=== PATIENT | female | born 1975 | race Caucasian/White ===

== ENCOUNTER → 2023-02-07 | Outpatient (CLI) | payer SELFPAY ==
[2023-02-07 16:06] LABS: Homocysteine 10.7 UMOL/L (4.00-14.00)
[2023-02-07 16:53] LABS: Estradiol <20.0 pg/mL
[2023-02-07 18:59] LABS: DHEA Sulfate 57.6 UG/DL (39.0-800.0)
== END | disposition home or self-care (01) ==
LOC: LABWHC1 09:51
PROVIDERS: ATTEND Family Medicine
DX: E34.9 Endocrine disorder, unspecified (principal); E72.10 Disorders of sulfur-bearing amino-acid metabolism, unspecified; E53.9 Vitamin B deficiency, unspecified
CPT/HCPCS: 36415; 82607; 82627; 82670; 83090; 84144; 84402; 84403

== ENCOUNTER → 2023-05-06 | Outpatient (CLI) | payer SELFPAY ==
[2023-05-06 16:40] LABS: Estradiol <20.0 pg/mL
== END | disposition home or self-care (01) ==
LOC: LABWHC1 09:56
PROVIDERS: ATTEND Nurse Practitioner Family
DX: E34.9 Endocrine disorder, unspecified (principal)
CPT/HCPCS: 36415; 82670; 84144; 84403

== ENCOUNTER → 2023-11-09 | Outpatient (CLI) | payer SELFPAY ==
[2023-11-09 15:14] LABS: HCT 36.7 % (37.2-46.3); HGB 12.4 g/dL (12.0-15.0); MCH 31.6 pg (27.0-32.0); MCHC 33.8 g/dL (32.0-37.0); MCV 93.6 FL (80.0-97.0); Mean Platelet Volume 11.4 FL (9.5-12.2); NRBC Per 100 WBC 0 X 10*3/uL (0.00-0.01); Platelet Count 175 X 10*3/uL (140-440); RBC 3.92 X 10*6/uL (4.10-5.20)
[2023-11-09 15:31] LABS: Homocysteine 9.94 UMOL/L (4.00-14.00)
[2023-11-09 15:32] LABS: ALT 21 U/L (8-44); AST 22 U/L (13-35); Albumin 4.7 g/dL (3.8-4.9); Albumin/Globulin Ratio 1.96 Ratio (1.60-3.17); Alkaline Phosphatase 62 U/L (41-126); BUN/Creat Ratio 19.89 Ratio (12.00-20.00); Blood Urea Nitrogen 17.9 mg/dL (9.0-27.0); Calcium 9.4 mg/dL (8.7-10.3); Carbon Dioxide 24.9 mmol/L (21.6-31.8); Chloride 104 mmol/L (96-109); Globulin 2.4 g/dL (1.6-3.3); Glucose 97 mg/dL (70-110); LDL Cholesterol,Calculated 122.6 mg/dL (0.0-131.0); Potassium 3.7 mmol/L (3.5-5.5); Sodium 140 mmol/L (135-145); Total Bilirubin 0.5 mg/dL (0.3-1.2); Total Protein 7.1 g/dL (6.2-8.2)
[2023-11-09 15:44] LABS: C Reactive Protein <0.30 mg/dL (0.00-0.80); Estradiol <20.0 pg/mL
[2023-11-09 15:51] LABS: Progesterone 1.8 ng/mL
== END | disposition home or self-care (01) ==
LOC: LABWHC1 08:52
PROVIDERS: ATTEND Nurse Practitioner Family
DX: E03.9 Hypothyroidism, unspecified (principal); E72.10 Disorders of sulfur-bearing amino-acid metabolism, unspecified; E55.9 Vitamin D deficiency, unspecified; I10 Essential (primary) hypertension; D64.9 Anemia, unspecified; R73.09 Other abnormal glucose
CPT/HCPCS: 36415; 80053; 80061; 82306; 82670; 82728; 83036; 83090; 84144; 84402; 84403; 84443; 85027; 86140

== ENCOUNTER → 2024-04-26 | Outpatient (CLI) | payer SELFPAY ==
[2024-04-26 15:13] LABS: Homocysteine 8.3 UMOL/L (4.00-14.00)
[2024-04-26 15:30] LABS: Progesterone 3.4 ng/mL
[2024-04-26 16:35] LABS: Estradiol <20.0 pg/mL
== END | disposition home or self-care (01) ==
LOC: LABWHC1 08:16
PROVIDERS: ATTEND Nurse Practitioner Family
DX: E34.9 Endocrine disorder, unspecified (principal); E72.10 Disorders of sulfur-bearing amino-acid metabolism, unspecified; E55.9 Vitamin D deficiency, unspecified
CPT/HCPCS: 36415; 82306; 82670; 83090; 84144; 84402; 84403

== ENCOUNTER → 2024-10-15 | Outpatient (CLI) | payer SELFPAY ==
[2024-10-15 15:51] LABS: ALT 20 U/L (8-44); AST 21 U/L (13-35); Albumin 4.6 g/dL (3.8-4.9); Albumin/Globulin Ratio 2.19 Ratio (1.60-3.17); Alkaline Phosphatase 51 U/L (41-126); Anion Gap 10.30 mmol/L (4.00-12.00); BUN/Creat Ratio 15.75 Ratio (12.00-20.00); Blood Urea Nitrogen 12.6 mg/dL (9.0-27.0); Calcium 9.1 mg/dL (8.7-10.3); Carbon Dioxide 24.7 mmol/L (21.6-31.8); Chloride 107 mmol/L (96-109); Cholesterol 209.00 mg/dL (0.00-200.00); Ferritin 147.0 ng/mL (10.0-291.0); Globulin 2.1 g/dL (1.6-3.3); Glucose 95 mg/dL (70-110); HDL Cholesterol 68.80 mg/dL (40.00-60.00); LDL Cholesterol,Calculated 132.1 mg/dL (0.0-131.0); Potassium 3.9 mmol/L (3.5-5.5); Sodium 142 mmol/L (135-145); Total Protein 6.7 g/dL (6.2-8.2); Triglycerides 40.70 mg/dL (0.00-149.00); VLDL Calculation 8.14 mg/dL (5.00-40.00)
[2024-10-15 16:02] LABS: HCT 34.1 % (37.2-46.3); HGB 11.3 g/dL (12.0-15.0); MCH 30.9 pg (27.0-32.0); MCHC 33.1 g/dL (32.0-37.0); MCV 93.2 FL (80.0-97.0); NRBC Per 100 WBC 0 X 10*3/uL (0.00-0.01); Platelet Count 184 X 10*3/uL (140-440); RBC 3.66 X 10*6/uL (4.10-5.20); RDW 12.2 % (11.5-14.5); WBC 3.99 X 10*3/uL (4.50-10.00)
== END | disposition home or self-care (01) ==
LOC: LABWHC1 08:47
PROVIDERS: ATTEND Nurse Practitioner Family
DX: I10 Essential (primary) hypertension (principal); E34.9 Endocrine disorder, unspecified; E72.10 Disorders of sulfur-bearing amino-acid metabolism, unspecified; E55.9 Vitamin D deficiency, unspecified; E78.5 Hyperlipidemia, unspecified; D64.9 Anemia, unspecified; M06.9 Rheumatoid arthritis, unspecified; R73.09 Other abnormal glucose
CPT/HCPCS: 36415; 80053; 80061; 82172; 82306; 82627; 82670; 82728; 83036; 83090; 84144; 84402; 84403; 85027; 86140